=== PATIENT | male | born 1990 | race Caucasian/White ===

== ENCOUNTER 2020-10-08 14:12 | Emergency (ER) | payer SELFPAY ==
[2020-10-08 14:34] VITALS: BP 109/64; PULSE 109; RESP 18; TEMP 36.8; O2SAT 99; BMI 22.8
== END 2020-10-08 14:57 | disposition left against medical advice (07) ==
PROVIDERS: Emergency Provider Emergency Medicine
CPT/HCPCS: 99281

== ENCOUNTER 2022-10-24 14:34 | Emergency (ER) | payer OTHER, MEDICAID, SELFPAY ==
[2022-10-24 15:05] VITALS: BP 128/74; PULSE 100; RESP 14; TEMP 36.8; O2SAT 100; BMI 24.3
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
== END 2022-10-24 17:44 | disposition left against medical advice (07) ==
PROVIDERS: Emergency Provider Emergency Medicine
DX: S69.92XA Unspecified injury of left wrist, hand and finger(s), initial encounter (principal); X58.XXXA Exposure to other specified factors, initial encounter
CPT/HCPCS: 73140; 99281

== ENCOUNTER 2023-09-23 13:20 | Emergency (ER) | payer OTHER, MEDICAID, SELFPAY ==
[2023-09-23] VITALS (9 sets, daily range): BP systolic 95–118; BP diastolic 59–67; PULSE 90–112; RESP 20; TEMP 38.1; O2SAT 97–100; BMI 25.0
[2023-09-23] MEDS: ACETAMINOPHEN 325 MG TABLET 975 MG PO (14:08)
[2023-09-23 14:29] LABS: Strep Grp A by PCR Rapid Positive (Negative)
[2023-09-23 14:32] LABS: Influenza A - CEPHEID Flu A NEGATIVE (NEGATIVE); Influenza B - CEPHEID Flu B NEGATIVE (NEGATIVE); Respiratory Syncytial Virus Negative (Negative)
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
[2023-09-23 14:34] LABS: COVID-19 CEPHEID 4-PLEX PCR Negative (Negative)
[2023-09-23] MEDS: PENICILLIN VK 250 MG TABLET 500 MG PO (14:54)
[2023-09-23] MEDS: DEXAMETHASONE 10 MG/ML VIAL PO (14:55)
== END 2023-09-23 14:58 | disposition home or self-care (01) ==
PROVIDERS: Emergency Medicine; Emergency Provider Student in an Organized Health Care Education/Training Program
DX: J02.0 Streptococcal pharyngitis (principal); H92.01 Otalgia, right ear; Z11.52 Encounter for screening for COVID-19
CPT/HCPCS: 0241U; 87651; 99283; J1100

== ENCOUNTER 2023-11-07 00:35 | Emergency (ER) | payer OTHER, MEDICAID, SELFPAY ==
[2023-11-07 00:43] VITALS: BP 126/79; PULSE 114; RESP 20; TEMP 36.6; O2SAT 100; BMI 23.6
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
[2023-11-07] MEDS: HYDROCODONE/ACET 5/325 PREPACK 1 BOTTLE MISC (01:33)
[2023-11-07 01:39] VITALS: BP 127/85; PULSE 78; RESP 16; TEMP 36.4; O2SAT 99
== END 2023-11-07 01:41 | disposition home or self-care (01) ==
PROVIDERS: Emergency Provider Emergency Medicine
DX: S43.401A Unspecified sprain of right shoulder joint, initial encounter (principal); V19.9XXA Pedal cyclist (driver) (passenger) injured in unspecified traffic accident, initial encounter
CPT/HCPCS: 73000; 73030; 99281; 99283

== ENCOUNTER 2024-06-07 19:42 | Inpatient (IN) | payer OTHER, SELFPAY ==
[2024-06-07] VITALS (8 sets, daily range): BP systolic 96–120; BP diastolic 55–80; PULSE 90–107; RESP 24; TEMP 36.9; O2SAT 91–100; BMI 24.3
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
[2024-06-07] MEDS: SODIUM CHLORIDE 0.9% 1,000 ML 1000 ML IV (22:12)
[2024-06-07] MEDS: MORPHINE 4 MG/ML INJ IV (22:12)
[2024-06-07 22:32] LABS: Add Manual Diff / Slide Review NO; BUN Creatinine Ratio 16.5 (6-22); Basophils Absolute Auto 100 /uL (0-100); Basophils Percent Auto 1.1 % (0-2); Blood Urea Nitrogen 17 mg/dL (9-20); Calcium 9.6 mg/dL (8.4-10.2); Carbon Dioxide 24 mmol/L (22-32); Chloride 107 mmol/L (98-107); Eosinophils Absolute Auto 100 /uL (0-450); Eosinophils Percent Auto 0.6 % (2-4); Estimated Glomerular Filt Rate > 60 mL/min (>60); Glucose 113 mg/dL (70-100); HEMOLYSIS < 15 (0-50); Hematocrit 36.9 % (41-53); Hemoglobin 12.5 g/dL (13.5-17.5); Lymphocytes Absolute Auto 2800 /uL (1100-4500); Lymphocytes Percent Auto 28.4 % (25-40); Mean Corpuscular HGB Conc 33.8 % (30-36); Mean Corpuscular Hemoglobin 28.5 PG (26-34); Mean Corpuscular Volume 84.2 fL (80-100); Monocytes Absolute Auto 300 /uL (0-900); Monocytes Percent Auto 3.5 % (3-14); Neutrophils Absolute Auto 6600 /uL (1500-7000); Neutrophils Percent Auto 66.4 % (50-75); Platelet Count 452 X10^3/uL (150-400); Potassium 3.8 mmol/L (3.4-5.1); Red Blood Cell Count 4.38 X10^6/uL (4.5-5.9); Red Cell Distribution Width 13.7 % (11.6-14.8); Sodium 140 mmol/L (137-145)
[2024-06-07 22:53] LABS: Ur Creatinine Normal (Normal); Ur Specific Gravity Normal (Normal); Urine Cocaine Negative (Negative); Urine Tetrahydrocannabinol Positive (Negative); Urine pH Normal (Normal)
[2024-06-07 22:54] LABS: UR Morphine/Opiate cutoff 300 Positive (Negative); Urine Amphetamines Positive (Negative); Urine Barbiturates Negative (Negative); Urine Benzodiazepines Negative (Negative); Urine MDMA Negative (Negative); Urine Methadone Negative (Negative); Urine Methamphetamines Positive (Negative); Urine Oxycodone Negative (Negative); Urine Phencyclidine Negative (Negative); Urine Tricyclic Antidepressant Negative (Negative)
--- NOTE | 2024-06-07 22:59 | EKG_ITS ---
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
--- NOTE | 2024-06-07 23:04 | PC.NURSE ---
Zakiya ordered posterior long splint with karen flores, cristal RN and Emi RN and Gisel RN placed splint. CMS intact on foot, patient reports pain feels more controlled with splint
[2024-06-08] VITALS (15 sets, daily range): BP systolic 104–138; BP diastolic 62–101; PULSE 70–103; RESP 12–18; TEMP 36–36.7; O2SAT 92–100; BMI 24.3
[2024-06-08] MEDS: HYDROMORPHONE 2 MG INJ 1 MG IV ×6 (00:28→11:20)
[2024-06-08] MEDS: OXYCODONE IR 10 MG TABLET PO (00:29)
[2024-06-08] MEDS: SODIUM CHLORIDE 0.9% 1,000 ML 50 ML IV (00:30)
--- NOTE | 2024-06-08 06:47 | PC.NURSE ---
Admit/NOC Shift Note: Patient arrived to room via stretcher at 2320. Patient alert and oriented and able to make needs known to staff. Patient pleasent and cooperative. Admit questions done, physical assessment done, meds reviewed, and skin check completed. Patient oriented to bed and bed controls, room, lights, phone, menu, and call raza/tv remote. Patient uses urinal in bed without issue. Called Dr. Morales for orders for IV fluids and pain medications. Patient NPO after midnight. Safety measures in place. bed alarm activated. Patient agrees to call for assistance. Call raza and phone within reach. will continue to monitor.
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
--- NOTE | 2024-06-08 14:26 | SUR.OPER ---
Supine on padded OR bed, head on pillow, arms secured on padded arm boards at <90 degrees abduction, legs uncrossed, safety belt at thigh, tape over blanket over lower legs.
[2024-06-08] MEDS: LACTATED RINGERS 1,000 ML 42 ML IV (14:50)
[2024-06-08] MEDS: CEFAZOLIN 2 GM/100 ML PREMIX 100 ML IV ×2 (15:15→22:31)
[2024-06-08] MEDS: BUPIVACAINE 0.5% (PF) 30 ML VIAL INJ (16:33)
[2024-06-08] MEDS: ACETAMINOPHEN IV 1,000 MG/100 ML VIAL 400 MG IV (17:01)
[2024-06-08] MEDS: hydrOXYzine 50 MG/ML INJ IM (17:10)
[2024-06-08] MEDS: OXYCODONE IR 5 MG TABLET PO ×3 (17:11→22:05)
--- NOTE | 2024-06-08 17:52 | PC.NURSE ---
Addendum entered by Gisel Dietrich R.N. 06/08/24 18:53: Patient eats a large dinner and requesting to rest afterwards. Endorsed bladder scan, IS to oncoming shift. Original Note: Patient transferred to pre-op area approximately 1420 via bed this afternoon and returned at approximately 1700 this evening via bed. He is A&XOx4. VSS, afebrile on RA. RLE wrapped with splint and bandage CDI/. CMS to feet +. pedal pulses =s, capillary refill,3 secs. Patient tolerates dinner well. Continuous pulse ox, bed alarm, IVF per MAY, call light in reach, POSTOP VS per protocol, SCD to L LLE. He is due to void tonight at appoximately 2200.
[2024-06-08] MEDS: LACTATED RINGERS 1,000 ML 100 ML IV (18:12)
[2024-06-08] MEDS: DOCUSATE 100 MG CAPSULE PO (22:05)
[2024-06-08] MEDS: IBUPROFEN 400 MG TABLET PO (22:05)
[2024-06-08] MEDS: SENNOSIDES 8.6 MG TABLET 17.2 MG PO (22:06)
[2024-06-08] MEDS: ASPIRIN EC 81 MG TABLET PO (22:06)
[2024-06-08] MEDS: ACETAMINOPHEN 325 MG TABLET 650 MG PO (22:31)
[2024-06-09] VITALS: BP 118/58; PULSE 77; RESP 12; TEMP 36.4; O2SAT 98
[2024-06-09] MEDS: IBUPROFEN 400 MG TABLET PO ×4 (04:07→20:48)
[2024-06-09 05:07] LABS: Add Manual Diff / Slide Review NO; Basophils Absolute Auto 100 /uL (0-100); Basophils Percent Auto 0.6 % (0-2); Eosinophils Absolute Auto 100 /uL (0-450); Eosinophils Percent Auto 0.7 % (2-4); Hematocrit 32.9 % (41-53); Hemoglobin 11.3 g/dL (13.5-17.5); Lymphocytes Absolute Auto 2800 /uL (1100-4500); Lymphocytes Percent Auto 21.4 % (25-40); Mean Corpuscular HGB Conc 34.5 % (30-36); Mean Corpuscular Hemoglobin 29.1 PG (26-34); Mean Corpuscular Volume 84.3 fL (80-100); Monocytes Absolute Auto 700 /uL (0-900); Monocytes Percent Auto 5.2 % (3-14); Neutrophils Absolute Auto 9400 /uL (1500-7000); Neutrophils Percent Auto 72.1 % (50-75); Platelet Count 366 X10^3/uL (150-400)
[2024-06-09 05:11] LABS: BUN Creatinine Ratio 21.3 (6-22); Blood Urea Nitrogen 13 mg/dL (9-20); Calcium 8.3 mg/dL (8.4-10.2); Carbon Dioxide 25 mmol/L (22-32); Chloride 103 mmol/L (98-107); Estimated Glomerular Filt Rate > 60 mL/min (>60); Glucose 123 mg/dL (70-100); HEMOLYSIS < 15 (0-50); Potassium 3.7 mmol/L (3.4-5.1); Sodium 135 mmol/L (137-145)
[2024-06-09] MEDS: CEFAZOLIN 2 GM/100 ML PREMIX 100 ML IV (08:00)
--- NOTE | 2024-06-09 08:23 | PM.PNPO.1 ---
Subjective Subjective Interval history: Patient states he is feeling well this morning. Patient's pain is controlled with oral medication. ?Pain is localized to surgical site. ?Patient declines any new numbness or tingling at the surgical extremity. Has complaints of decreased sensation of the great toe. ?Patient denies any shortness of breath, dizziness, light-headedness, nausea, vomiting, fever or chills. Exam Vital Signs (past 8 hours): Oxygen Delivery Method Room Air Oxygen Flow Rate 0 Narrative Exam Narrative: Patient found resting comfortably in bed. Splint is well-maintained. Sensation intact to exposed toes to light touch. Capillary refills less than 2 seconds. Patient is able to wiggle toes. No pain to compression along the posterior calf. SCD on left leg and functional. Objective Labs 06/09/24 04:30 06/09/24 04:30 Labs: Laboratory Results - last 24 hr 06/09/24 04:30 WBC 13.0 H RBC 3.90 L Hgb 11.3 L Hct 32.9 L MCV 84.3 MCH 29.1 MCHC 34.5 RDW 14.0 Plt Count 366 Neut % (Auto) 72.1 Lymph % (Auto) 21.4 L [place] % (Auto) 5.2 Eos % (Auto) 0.7 L Baso % (Auto) 0.6 Neut # (Auto) 9400 H Lymph # (Auto) 2800 [place] # (Auto) 700 Eos # (Auto) 100 Baso # (Auto) 100 Sodium 135 L Potassium 3.7 Chloride 103 Carbon Dioxide 25 BUN 13 Creatinine 0.61 L Estimated GFR > 60 BUN/Creatinine Ratio 21.3 Glucose 123 H Calcium 8.3 L PFSH Social History household members: none Smoking Status: Current every day smoker Assessment & Plan Post-op Postoperative Procedures: Procedures Operation Date: 06/08/24 14:45 Actual Procedure Side Surgeon p ORIF Ankle Fracture Right Татьяна Morales MD Postoperative day: 1 Postoperative status: doing well Postoperative plan: routine post-op care and ambulate Postoperative plan narrative: Ambulate with PT while inpatient with crutches. Multimodal pain control. Aspirin 81 mg b.i.d. and SCDs on while resting in bed for DVT prevention. Discussed with CM about discharge disposition. There was concern that the patient is unhoused. CM we will discuss discharge disposition whether the to family or friends home or to SNF/swing bed. CM will update ortho team once discharge disposition can be finalized. Partial weight-bearing on the right lower extremity. Discharge to home when able to get around with crutches. 50 lb max on the right lower extremity. Follow up for staple removal and cast application in 10-14 days. Time Spent With Patient Time with patient: less than 15 minutes
[2024-06-09] MEDS: ASPIRIN EC 81 MG TABLET PO ×2 (08:51→20:48)
[2024-06-09] MEDS: DOCUSATE 100 MG CAPSULE PO ×2 (08:51→20:48)
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
--- NOTE | 2024-06-09 10:18 | CM.DPC ---
DCP Cont. Reviewed EMR and team rounds for status updates. Faxed referral to [facility] swing beds, they declined due to not taking his insurance. Went to speak to pt about discharge options, however he was found to be asleep and unarousable. Will speak with him tomorrow prior to d/c.
[2024-06-09] MEDS: ACETAMINOPHEN 325 MG TABLET 650 MG PO ×2 (10:55→16:47)
[2024-06-09] MEDS: OXYCODONE IR 5 MG TABLET PO ×4 (10:55→20:51)
--- NOTE | 2024-06-09 13:38 | OT.IPNOTE ---
Attempted OT eval and pt insistent that he will be fine and able to do all his ADL needs. To check on pt again tomorrow and if refusing again to discharge OT eval orders.
[2024-06-09 17:22] VITALS: BP 128/63; PULSE 86; RESP 18; TEMP 36.6; O2SAT 99
[2024-06-09] MEDS: hydrOXYzine HCL 25 MG TABLET 50 MG PO (17:40)
[2024-06-09 19:00] VITALS: BP 107/68; PULSE 85; RESP 12; TEMP 36.6; O2SAT 99
[2024-06-09] MEDS: SODIUM CHLORIDE 0.9% FLUSH 10 ML IV (20:48)
[2024-06-09] MEDS: SENNOSIDES 8.6 MG TABLET 17.2 MG PO (20:48)
--- NOTE | 2024-06-09 23:13 | PC.NURSE ---
Patient is alert and oriented. Breath sounds CTA with RA sat of 99%; denies SOB. HRR. Denied nausea. BT present and is passing flatus. Voiding per urinal and denied dysuria, frequency or urgency. Is able to reposition himself in bed. Transfer/gait not observed but has been getting up with PT with use of crutches and/or walker as is only TTWB on right LE. Right LE is in splint and CMS is intact except for some tingling which he states is lessening. Agreeable to having SCD placed on left LE at bedtime. Medicated with scheduled Ibuprofen + oxycodone at 2050 for complaint of 4/10 achy type pain. Fall risk score is high but is oriented and knows he is unable to get out of bed without assistance so alarm is not activated at this time.
[2024-06-10] MEDS: IBUPROFEN 400 MG TABLET PO ×3 (00:09→08:52)
[2024-06-10] MEDS: ACETAMINOPHEN 325 MG TABLET 650 MG PO ×3 (00:10→11:34)
[2024-06-10 04:00] VITALS: BP 114/67; PULSE 76; RESP 12; TEMP 36.2; O2SAT 98
--- NOTE | 2024-06-10 08:04 | PT-IP ANOTE ---
Patient declined physical therapy, commenting he will be able to do his best post breakfast. Patient ed importance of participating for progression of functional mobility, continues to decline.
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
[2024-06-10] MEDS: DOCUSATE 100 MG CAPSULE PO (08:52)
[2024-06-10] MEDS: ASPIRIN EC 81 MG TABLET PO (08:52)
[2024-06-10] MEDS: polyethylene glycoL 3350 17 GM POWD.PACK PO (08:52)
[2024-06-10] MEDS: SODIUM CHLORIDE 0.9% FLUSH 10 ML IV (08:54)
--- NOTE | 2024-06-10 11:14 | OT.IPNOTE ---
Pt being discharged and not able to see for OT eval as pt refused any OT needs yesterday.
--- NOTE | 2024-06-10 13:50 | CM.DPC ---
DCP Cont. Reviewed EMR and team rounds for status updates. Pt has been medically cleared for home d/c. He plans to stay with a friend while he recovers postoperatively. No further needs indicated at this time.
== END 2024-06-10 12:10 | disposition home or self-care (01) | DRG 313 ==
LOC: ED 21:21 → AC 22:00
PROVIDERS: Admitting Provider Orthopaedic Surgery; Emergency Provider Student in an Organized Health Care Education/Training Program; Visit Provider Orthopaedic Surgery
PROC: 0SSF04Z Reposition Right Ankle Joint with Internal Fixation Device, Open Approach (ICD-10-PCS; principal; 2024-06-08 14:45)
DX: S82.851A Displaced trimalleolar fracture of right lower leg, initial encounter for closed fracture (principal); S82.441A Displaced spiral fracture of shaft of right fibula, initial encounter for closed fracture; F17.200 Nicotine dependence, unspecified, uncomplicated; V17.0XXA Pedal cycle driver injured in collision with fixed or stationary object in nontraffic accident, initial encounter; Y93.55 Activity, bike riding; Z59.00 Homelessness unspecified
CPT/HCPCS: 36415; 73590; 73620; 80048; 80305; 85025; 93005; 96361; 96374; 97162; 97530; 99281; 99284; A9270; C1713; J0131; J0690; J1100; J1171; J1885; J2270; J2704; J3010; J3410; J3490